=== PATIENT | female | born 1980 | race Two or more races ===

== ENCOUNTER 2018-08-18 14:06 | Outpatient (CLI) | payer OTHER | END 2018-08-18 14:20 | disposition home or self-care (01) | LOC: OFIC 805 14:06 | DX: H91.90 Unspecified hearing loss, unspecified ear (principal); H61.23 Impacted cerumen, bilateral ==

== ENCOUNTER 2021-11-07 17:07 | Outpatient (CLI) | payer OTHER | END 2021-11-07 18:05 | disposition home or self-care (01) | LOC: NST 17:07 | PROVIDERS: ATTEND Obstetrics & Gynecology | DX: Z34.82 Encounter for supervision of other normal pregnancy, second trimester (principal) ==

== ENCOUNTER 2021-12-12 14:07 | Outpatient (CLI) | payer OTHER | END 2021-12-12 14:58 | disposition home or self-care (01) | LOC: NST 14:07 | PROVIDERS: ATTEND Obstetrics & Gynecology | DX: Z23 Encounter for immunization (principal) ==

== ENCOUNTER 2021-12-25 13:36 | Inpatient (IN) | payer OTHER ==
[~2021-12-25] VITALS: Ht 157.5 cm; Wt 75.7 kg
[2021-12-25] MEDS ORDERED: LABETALOL HCL200 MG PO (23:20)
[2021-12-25] MEDS ORDERED: ECOTRIN81 MG PO (23:21)
[2021-12-25] MEDS ORDERED: ASACOL HD800 MG PO (23:22)
[2021-12-25] MEDS ORDERED: NIFE60TA3 PO (23:22)
== END 2021-12-27 11:54 | disposition home or self-care (01) | DRG 831 ==
LOC: NST 13:36 → LDR 17:26 → OB/GYN 12-26 07:52
PROVIDERS: ADMIT Obstetrics & Gynecology Gynecology; ATTEND Obstetrics & Gynecology Gynecology
PROC: 4A1HXCZ Monitoring of Products of Conception, Cardiac Rate, External Approach (ICD-10-PCS; principal; 2021-12-25)
PROC: BY4FZZZ Ultrasonography of Third Trimester, Single Fetus (ICD-10-PCS; 2021-12-26)
DX: O24.410 Gestational diabetes mellitus in pregnancy, diet controlled (principal); O11.3 Pre-existing hypertension with pre-eclampsia, third trimester; O26.843 Uterine size-date discrepancy, third trimester; Z3A.32 32 weeks gestation of pregnancy; Z20.822 Contact with and (suspected) exposure to COVID-19

== ENCOUNTER → 2021-12-31 | Outpatient (CLI) | payer OTHER ==
[~2021-12-31] MED LIST: ASACOL HD800 MG PO; ECOTRIN81 MG PO; LABETALOL HCL200 MG PO; NIFE60TA3 PO
== END | disposition home or self-care (01) ==
LOC: NST 11:26
PROVIDERS: ATTEND Obstetrics & Gynecology Maternal & Fetal Medicine
DX: Z34.83 Encounter for supervision of other normal pregnancy, third trimester (principal)

== ENCOUNTER 2022-01-05 14:45 | Outpatient (CLI) | payer OTHER | END 2022-01-05 17:02 | disposition home or self-care (01) | LOC: NST 14:45 | PROVIDERS: ATTEND Obstetrics & Gynecology Maternal & Fetal Medicine | DX: Z34.83 Encounter for supervision of other normal pregnancy, third trimester (principal) ==

== ENCOUNTER 2022-01-22 15:42 | Outpatient (CLI) | payer OTHER ==
[2022-01-23] MEDS ORDERED: PRENATAL TABLE1 EAC1 PO (14:43)
== END 2022-01-22 19:10 | disposition home or self-care (01) ==
LOC: NST 15:42
PROVIDERS: ATTEND Obstetrics & Gynecology
DX: Z34.83 Encounter for supervision of other normal pregnancy, third trimester (principal)

== ENCOUNTER 2022-01-23 12:56 | Inpatient (IN) | payer OTHER ==
[~2022-01-23] VITALS: Ht 157.5 cm; Wt 2.7 kg
[2022-01-23] MEDS ORDERED: PRENATAL TABLE1 EAC1 PO (14:43)
== END 2022-01-27 15:20 | disposition home or self-care (01) | DRG 786 ==
LOC: LDR 12:56 → EDSTATUS 13:00 → OB/GYN 13:02 → LDR 13:02 → OB/GYN 16:13
PROVIDERS: ADMIT Obstetrics & Gynecology; ATTEND Obstetrics & Gynecology
PROC: 4A1HXCZ Monitoring of Products of Conception, Cardiac Rate, External Approach (ICD-10-PCS; 2022-01-23)
PROC: 10D00Z1 Extraction of Products of Conception, Low, Open Approach (ICD-10-PCS; principal; 2022-01-23 17:15)
DX: O82 Encounter for cesarean delivery without indication (principal); O24.420 Gestational diabetes mellitus in childbirth, diet controlled; O13.4 Gestational [pregnancy-induced] hypertension without significant proteinuria, complicating childbirth; O60.14X0 Preterm labor third trimester with preterm delivery third trimester, not applicable or unspecified; Z3A.36 36 weeks gestation of pregnancy; Z37.0 Single live birth

== ENCOUNTER 2025-01-24 06:00 | Day surgery (SDC) | payer OTHER ==
[2025-01-18 09:57] LABS: BASO % 0.5 % (0.1-1.2); EOS # 0.13 (0.04-0.54); EOS % 1.6 % (0.7-7.0); LYMPH # 2.57 (1.18-3.74); LYMPH % 32.4 % (19.3-53.1); MEAN PLATELET VOLUME 9.20 fl (9.4-12.4); MONO # 0.41 (0.24-0.82); MONO % 5.2 % (4.7-12.5); NEUT # 4.75 (1.56-6.13); NEUT % 60.0 % (34.0-71.1); RED CELL DISTRIBUTION WIDTH 13.2 % (11.6-14.4)
[2025-01-18 09:58] VITALS: BP 119/81
[2025-01-18 10:28] LABS: INR < 0.93
[2025-01-18 10:36] LABS: ALT/SGPT 35.0 U/L (12-78); AST/SGOT 20.0 U/L (15-37); BILIRUBIN TOTAL 0.59 mg/dL (0.3-1.2); BUN CREA RATIO 18.0 (7.0-25.0); CREATININE SERUM 0.8 mg/dL (0.55-1.02); GFR 77.92; GLOBULINA 3.3 G/DL (2.4-3.5); GLUCOSE FASTING 95.0 mg/dL (65-100); OSMOLALITY SERUM 282.0 MOSM/KG (275-295)
[~2025-01-24] VITALS: Ht 157.5 cm; Wt 71.7 kg
[~2025-01-24 06:00] MED LIST changes: +LIPITOR20 MG PO; +PRENATAL TABLE1 EAC1 PO; +RAMIPRIL10 MG PO
[2025-01-24] MEDS ORDERED: POVIDONE-IODINE 118 ML BOTT TOP ONE (07:04)
[2025-01-24] MEDS ORDERED: PROMETHAZINE HCL 50 MG/ML AMPUL IM ONE ×2 (09:00→10:00)
== END 2025-01-24 13:05 | disposition home or self-care (01) ==
LOC: CIR.AMB 06:00
PROVIDERS: ATTEND Obstetrics & Gynecology
DX: Z30.2 Encounter for sterilization (principal)